=== PATIENT | female | born 1990 | race Two or more races ===

== ENCOUNTER 2021-02-26 08:00 | Outpatient (CLI) | payer OTHER ==
[2021-02-26 17:43] LABS: BILIRUBIN,URINE NEGATIVE (NEGATIVE); GLUCOSE, URINE (UA) NEGATIVE (NEGATIVE); KETONES,URINE (UA) NEGATIVE (NEGATIVE); LEUKOCYTE ESTERASE, URINE NEGATIVE (NEGATIVE); NITRITE,URINE NEGATIVE (NEGATIVE); OCCULT BLOOD,URINE NEGATIVE (NEGATIVE); PROTEIN,URINE NEGATIVE (NEGATIVE); UROBILINOGEN,URINE 0.2 (NORMAL) E.U./dL (NORMAL)
[2021-02-26 17:44] LABS: CLARITY,URINE CLEAR (CLEAR)
[2021-02-26 17:57] LABS: BACTERIA,URINE None Seen /HPF (None Seen); RBC,URINE None Seen /HPF (0-5); SQUAMOUS EPITHELIAL CELL,UR FEW Squamous (<= Few); WBC,URINE 0-3 /HPF (0-5)
== END 2021-02-26 23:59 ==
LOC: LAB.S 08:00
PROVIDERS: ATTEND Obstetrics & Gynecology
DX: O09.91 Supervision of high risk pregnancy, unspecified, first trimester (principal); Z36.89 Encounter for other specified antenatal screening
CPT/HCPCS: 81001; 87086

== ENCOUNTER 2021-03-14 14:47 | Outpatient (CLI) | payer OTHER ==
--- NOTE | 2021-03-14 16:43 | Ultrasound Report ---
PROCEDURE: OB First Trimester w/TV INDICATIONS: SUPERVISION HIGH RISH OUTSIDE/PRIOR DATING DATA: Last menstrual period (LMP): 01/07/2021. LMP-based estimated date of delivery (DA): 10/14/2021. First dating scan (date and location): 03/14/2021. Estimated date of delivery (DA) from first dating scan: 10/08/2021. The below data below was generated using the ultrasound DA of 10/08/2021 TECHNIQUE: Real-time scanning was performed of the fetus and maternal pelvic organs, with image documentation. Endovaginal scanning was also performed to better visualize the fetus and maternal ovaries. COMPARISON: None FINDINGS: Living first trimester anterior with crown-rump length and heartbeat. Embryo: [place]-rump length measures 3.4 cm, 10 weeks 2 days Heart rate: 192 There are 2 separate areas of subchorionic hemorrhage, measuring 2.8 x 2.7 x 1.1 cm and 1.8 x 0.8 x 1 .6 cm respectively. Measurement variability in dating: +/- 4 weeks by LMP, +/- 7 days by mean sac diameter (use before 6 weeks gestation if crown-rump length not able to be measured), +/- 5 days by crown-rump length (6-12 weeks gestation). Maternal organs: Left corpus luteum. Small posterior fibroid measuring 1.7 cm. IMPRESSION: 1. Living first trimester intrauterine with crown-rump length and heart beat measuring 10 w eeks 2 days. 2. Perigestational hemorrhage. Reviewed by: Stanley Figueroa MD on 03/14/2021 4:42 PM PST Approved by: Stanley Figueroa MD on 03/14/2021 4:42 PM PST Station ID: [id number]
== END 2021-03-14 14:48 | disposition home or self-care (01) ==
LOC: DI 14:47
PROVIDERS: ATTEND Obstetrics & Gynecology
DX: O09.91 Supervision of high risk pregnancy, unspecified, first trimester (principal); O20.8 Other hemorrhage in early pregnancy; Z3A.10 10 weeks gestation of pregnancy

== ENCOUNTER 2021-03-20 08:00 | Outpatient (CLI) | payer OTHER ==
[2021-03-20 22:01] LABS: CHLAMYDIA TRACHOMATIS DNA NEGATIVE (NEGATIVE); NEISSERIA GONORRHOEAE DNA NEGATIVE (NEGATIVE); TRICHOMONAS VAGINALIS DNA NEGATIVE (NEGATIVE)
== END 2021-03-20 23:59 | disposition home or self-care (01) ==
LOC: LAB.WC 08:00
PROVIDERS: ATTEND Obstetrics & Gynecology
DX: O09.91 Supervision of high risk pregnancy, unspecified, first trimester (principal)
CPT/HCPCS: 87491; 87591; 87661

== ENCOUNTER 2021-03-20 12:15 | Outpatient (CLI) | payer OTHER ==
[2021-03-20 13:01] LABS: % IRON SATURATION 20 % (20-50); IRON 86 ug/dL (28-170); TOTAL IRON BINDING CAPACITY 423 ug/dL (250-450); TRANSFERRIN 302 mg/dL (192-382)
== END 2021-03-20 12:16 | disposition home or self-care (01) ==
LOC: LAB 12:15
PROVIDERS: ATTEND Obstetrics & Gynecology
DX: O09.91 Supervision of high risk pregnancy, unspecified, first trimester (principal)
CPT/HCPCS: 36415; 82728; 83540; 84466; 87491; 87591; 87661

== ENCOUNTER 2021-04-09 14:08 | Outpatient (CLI) | payer OTHER ==
[2021-04-09 14:35] LABS: BASOPHILS # (AUTO) 0.1 10^3/uL (0.0-0.1); BASOPHILS % (AUTO) 0.6 %; EOSINOPHILS # (AUTO) 0.4 10^3/uL (0.0-0.7); EOSINOPHILS % (AUTO) 3.1 %; HCT - HEMATOCRIT 40.9 % (37.0-47.0); HGB - HEMOGLOBIN 14.7 g/dL (12.0-16.0); LYMPHOCYTES % (AUTO) 15.8 %; MEAN CORPUSCULAR HEMOGLOBIN 31.5 pg (27.0-31.0); MEAN CORPUSCULAR HGB CONC 35.9 g/dL (32.0-36.0); MEAN CORPUSCULAR VOLUME 87.6 fL (81.0-99.0); MEAN PLATELET VOLUME 9.1 fL (7.9-10.8); MONOCYTES % (AUTO) 7.7 %; NEUTROPHILS # (AUTO) 8.9 10^3/uL (1.5-6.6); NEUTROPHILS % (AUTO) 70.6 %; PLT - PLATELET COUNT 372 10^3/uL (130-450); RED BLOOD COUNT 4.67 10^6/uL (4.20-5.40); RED CELL DISTRIBUTION WIDTH 13.2 % (12.0-15.0); WHITE BLOOD COUNT 12.6 x10^3/uL (4.8-10.8)
[2021-04-09 15:04] LABS: THYROID STIMULATING HORMONE 1.09 uIU/mL (0.34-5.60)
[2021-04-10 09:12] LABS: HEPATITIS B SURFACE ANTIGEN NON-REACTIVE (NON-REACTIVE)
[2021-04-10 11:37] LABS: HEPATITIS C ANTIBODY NON-REACTIVE (NON-REACTIVE)
[2021-04-10 14:51] LABS: HIV AG/AB 4TH GEN NON-REACTIVE (NON-REACTIVE)
== END 2021-04-09 14:09 | disposition home or self-care (01) ==
LOC: LAB 14:08
PROVIDERS: ATTEND Obstetrics & Gynecology
DX: Z36.89 Encounter for other specified antenatal screening (principal); R53.83 Other fatigue
CPT/HCPCS: 36415; 84443; 85025; 86592; 86762; 86787; 86803; 86850; 86900; 86901; 87340; 87389

== ENCOUNTER 2021-06-05 10:02 | Outpatient (CLI) | payer OTHER ==
--- NOTE | 2021-06-05 13:53 | Ultrasound Report ---
PROCEDURE: OB Detailed Eval INDICATIONS: SUPERVISION OF OUTSIDE/PRIOR DATING DATA: Last menstrual period (LMP): 01/07/2021. LMP-based estimated date of delivery (DA): 10/14/2021. First dating scan (date and location): 03/14/2021 at [facility]. Estimated date of delivery (DA) from first dating scan: 10/08/2021. The below data below was generated using the ultrasound DA of 10/08/2021. TECHNIQUE: Real-time scanning was performed of the fetus, with image documentation and biometric measurements. COMPARISON: OB ultrasound, 03/14/2021. FINDINGS: General: A single living intrauterine gestation is present. Presentation: Variable Placenta: Placental position is posterior, without previa. Amniotic fluid index: 14.2 cm; largest pocket 4.6 cm. heart rate: 155 beats per minute. Maternal cervical canal: 6.2 cm long; normal length is 2.5 cm or more. biometrics: Biparietal diameter: 20 weeks 4 days. Head circumference: 21 weeks 3 days Abdominal circumference: 22 weeks 2 days Femur length: 20 weeks 6 days Estimated gestational age from initial scan: 22 weeks 1 day. Composite gestational age from present scan: 21 weeks 4 days Estimated weight and percentile: 339 g; 21% for gestational age. Measurement variability in biometric dating: +/- 10 days from 12-20 weeks gestation, +/- 2 weeks from 20-30 weeks gestation, +/- 3 weeks at 30 weeks gestation or later. Anatomic survey: Neuro: Ventricles are normal at less than 10 mm. Cisterna magna is normal at 3-11 mm. Cerebellum i s normal in size and morphology. Nuchal skin fold: Normal at less than 6 mm between 14 and 20 weeks gestational age. Face: Nose and lips, facial profile are normal. Spine: No evidence for spina bifida. Heart: 4-chambered heart is present, with normal ventricular outflow tracts. Diaphragm: Diaphragm is intact. Stomach: Left-sided stomach is present. Kidneys: No hydronephrosis. Normal is less than 5 mm in 2nd trimester, less than 7 mm in 3rd trimester. Cord: 3 vessel cord has orthotopic insertion. Bladder: Normal in size. Extremities: All 4 extremities are visualized. IMPRESSION: 1. A single living IUP redemonstrated. Interval growth within normal limits. 2. weight is estimated at 21th percentile for gestational age. 3. Normal anatomic survey. Reviewed by: Ron Still MD on 06/05/2021 1:52 PM PDT Approved by: Ron Still MD on 06/05/2021 1:52 PM PDT Station ID: [id number]
== END 2021-06-05 10:03 | disposition home or self-care (01) ==
LOC: DI 10:02
PROVIDERS: ATTEND Obstetrics & Gynecology
DX: O09.92 Supervision of high risk pregnancy, unspecified, second trimester (principal); Z3A.21 21 weeks gestation of pregnancy; Z36.89 Encounter for other specified antenatal screening

== ENCOUNTER 2021-06-16 12:57 | Outpatient (CLI) | payer OTHER ==
[2021-06-17 13:01] LABS: AGE RISK DOWN SYNDROME 1 IN 497; CALC'D GESTATIONAL AGE 22.9 weeks; CIGARETTE SMOKER? NOT GIVEN; DONOR AGE: EGG RETRIEVAL NOT GIVEN; DONOR EGG NO; ESTRIOL MOM 1.18; HCG MOM 2.71; HX OF NEURAL TUBE DEFECTS NO; INHIBIN A MOM 1.08; INSULIN DEPEND DIABETIC NO; MATERNAL WEIGHT 122 lbs; MSS DOWN SYNDROME RISK 1 IN 3830; MSS3 TRISOMY 18 RISK <1 IN 5000; NUMBER OF FETUSES 1; PREV PREGNANCY DOWN SYND NO; RISK FOR ONTD 1 IN 4205
== END 2021-06-16 12:58 | disposition home or self-care (01) ==
LOC: LAB.N 12:57
PROVIDERS: ATTEND Obstetrics & Gynecology
DX: Z36.8A Encounter for antenatal screening for other genetic defects (principal); Z86.32 Personal history of gestational diabetes
CPT/HCPCS: 36415; 81511; 82950

== ENCOUNTER 2021-07-14 08:04 | Outpatient (CLI) | payer OTHER ==
[2021-07-14 08:33] LABS: GTT GLUCOSE,FASTING 103 mg/dL (70-100)
== END 2021-07-14 08:05 | disposition home or self-care (01) ==
LOC: LAB 08:04
PROVIDERS: ATTEND Obstetrics & Gynecology
DX: Z86.32 Personal history of gestational diabetes (principal)
CPT/HCPCS: 36415; 82951; 82952

== ENCOUNTER 2021-08-15 12:42 | Outpatient (CLI) | payer OTHER ==
--- NOTE | 2021-08-15 15:52 | Ultrasound Report ---
PROCEDURE: OB F/U or Repeat INDICATIONS: GESTTIONAL DIABETES OUTSIDE/PRIOR DATING DATA: Last menstrual period (LMP): 01/07/2021. LMP-based estimated date of delivery (DA): 10/14/2021. First dating scan (date and location): 03/14/2021. Estimated date of delivery (DA) from first dating scan: 10/08/2021. The below data below was generated using the sonographically derived DA of 10/08/2021 TECHNIQUE: Real-time scanning was performed of the fetus, with image documentation and biometric measurements. Endovaginal scanning: Not performed COMPARISON: 06/05/2021, 03/14/2021 FINDINGS: General: A single living intrauterine gestation is present. Presentation: Cephalic Placenta: Placental position is posterior, without previa. Amniotic fluid index: 18.4 cm, normal for gestational age. Largest pocket is 5.3 cm. heart rate: 143 beats per minute. Maternal cervical canal: Closed and 6.8 cm long; normal length is 2.5 cm or more. biometrics: Biparietal diameter: 7.9 cm, 31 weeks, 6 days Head circumference: 29.9 cm, 33 weeks, 1 day Abdominal circumference: 28.1 cm, 32 weeks, 1 day Femur length: 5.8 cm, 30 weeks, 2 days Estimated gestational age from initial scan: 32 weeks, 2 days. Composite gestational age from present scan: 31 weeks, 6 days Estimated weight and percentile: 1809 g, 21st percentile Measurement variability in biometric dating: +/- 10 days from 12-20 weeks gestation, +/- 2 weeks from 20-30 weeks gestation, +/- 3 weeks at 30 weeks gestation or more. Other: Not applicable. IMPRESSION: 1. Single living intrauterine with composite gestational age by today's measurements 3 days behind the initially assigned gestational age. 2. Estimated weight 1809 g, at the 21st percentile compared to the initial ultrasound. 3. Amniotic fluid index is 18.4 cm. Reviewed by: Lita Campo MD on 08/15/2021 3:51 PM PDT Approved by: Lita Campo MD on 08/15/2021 3:51 PM PDT Station ID: [id number]
== END 2021-08-15 12:43 | disposition home or self-care (01) ==
LOC: DI 12:42
PROVIDERS: ATTEND Obstetrics & Gynecology
DX: O24.410 Gestational diabetes mellitus in pregnancy, diet controlled (principal); Z3A.31 31 weeks gestation of pregnancy

== ENCOUNTER 2021-09-01 08:06 | Outpatient (CLI) | payer OTHER ==
--- NOTE | 2021-09-01 17:37 | Ultrasound Report ---
PROCEDURE: OB Biophysical Profile INDICATIONS: GESTATIONAL DIABETES MELLITUS OUTSIDE/PRIOR DATING DATA: Last menstrual period (LMP): 01/07/2021. LMP-based estimated date of delivery (DA): 10/14/2021. First dating scan (date and location): 03/14/2021. Estimated date of delivery (DA) from first dating scan: 10/08/2021. TECHNIQUE: Real-time scanning was performed of the fetus, with image documentation and biometric steven surements. Biophysical profile was also obtained. Endovaginal scanning: Not performed COMPARISON: 08/15/2021 FINDINGS: General: A single living intrauterine gestation is present. Presentation: Vertex Placenta: Placental position is posterior, without previa. Amniotic fluid index: 13.1 cm. heart rate: 123 beats per minute. Maternal cervical canal: 5.3 cm long; normal length is 2.5 cm or more. Estimated gestational age from initial scan: 34 weeks and 5 days. Biophysical profile: Tone: 2 points. Movement: 2 points. Respiration: 0 points. Largest pocket of fluid: 2 points. Largest vertical pocket measured 5.2 cm. Umbilical artery Doppler: Normal S/D ratios and cord Doppler waveforms. IMPRESSION: Single living intrauterine gestation with estimated gestational age of approximately 34 weeks and 5 d ays. Biophysical profile score of 6 out of 8 points. Four-quadrant ARIEL measured 13.1 cm with largest verti da pocket of 5.2 cm. Normal S/D ratios and cord Doppler waveforms. Reviewed by: Franco Ziegler MD on 09/01/2021 5:36 PM PDT Approved by: Franco Ziegler MD on 09/01/2021 5:36 PM PDT Station ID: [id number]
== END 2021-09-01 08:07 | disposition home or self-care (01) ==
LOC: DI 08:06
PROVIDERS: ATTEND Obstetrics & Gynecology
DX: O24.410 Gestational diabetes mellitus in pregnancy, diet controlled (principal); Z3A.34 34 weeks gestation of pregnancy

== ENCOUNTER 2021-09-01 08:59 | Observation (INO) | payer OTHER ==
[2021-09-01] MEDS ORDERED: LACTATED RINGERS 1,000 ML IV ONE (09:42)
[2021-09-01 12:01] LABS: BILIRUBIN,URINE NEGATIVE (NEGATIVE); GLUCOSE, URINE (UA) NEGATIVE (NEGATIVE); KETONES,URINE (UA) NEGATIVE (NEGATIVE); LEUKOCYTE ESTERASE, URINE NEGATIVE (NEGATIVE); NITRITE,URINE NEGATIVE (NEGATIVE); OCCULT BLOOD,URINE NEGATIVE (NEGATIVE); PROTEIN,URINE NEGATIVE (NEGATIVE); UROBILINOGEN,URINE 0.2 (NORMAL) E.U./dL (NORMAL)
[2021-09-01 12:02] LABS: CLARITY,URINE CLEAR (CLEAR)
[2021-09-01 12:07] LABS: BACTERIA,URINE Few /HPF (None Seen); RBC,URINE 0-5 /HPF (0-5); SQUAMOUS EPITHELIAL CELL,UR FEW Squamous (<= Few); WBC,URINE 0-3 /HPF (0-5)
[2021-09-01] MEDS ORDERED: BETAMETHASONE 30 MG/5 ML VIAL IM ONE (13:02)
--- NOTE | 2021-09-01 13:02 | HISTORY & PHYSICAL EXAMINATION ---
Admit History - Visit Reason Visit Reason: Contractions - : 2 Parity: 2 Premature: 2 Care: positive: [facility] Risk/History: positive: labor <37 weeks Complications This : positive: Gestational diabetes Meds/Allgy - Allergies Allergies/Adverse Reactions: Allergies Allergy/AdvReac Type Severity Reaction Status Date / Time No Known Drug Allergies Allergy Verified 09/01/21 11:57 Review of Systems - Constitutional Constitutional: denies: Fatigue, Fever, Chills - Cardiovascular Cariovascular: denies: Chest pain - Respiratory Respiratory: denies: Cough, SOB at rest, SOB with exertion - Gastrointestinal Gastrointestinal: denies: Abdominal pain - Neurological Neurological: denies: Headache - All Other Systems All Other Systems: reports: Reviewed and negative Physical - Abdominal Exam Vital Signs: Temp Pulse Resp BP Pulse Ox 97.5 F L 100 18 113/74 09/01/21 09:06 09/01/21 09:06 09/01/21 09:06 09/01/21 09:06 Contraction Intensity: positive: Mild Uterine Resting Tone: positive: Soft - Monitoring Strip Review: positive: Category I - Vaginal Exam Membranes: positive: Membranes intact Station: positive: 0, 3 Cervical Position: positive: Posterior - Speculum Exam Speculum Exam Performed: positive: No Plan for Labor - Plan For Labor I expect patient to be DC'd or transferred within 96 hours.: Yes Plan for Labor: Patient is a at 34+6 weeks with history of section presenting with pelvic pressure. has been complicated by gestational diabetes. 1. contractions -U/A negative -FFN negative -Patient has history of delivery secondary to mono-mono twin gestation -cervix is unchanged on both of my exams, will keep for monitoring overnight 2. prematurity - steroids -discussed with patient, if cervical change or becomes more uncomfortable, will need to transfer patient 3. gestational diabetes -continue home regimen: metformin 62564 BID 4. wellbeing reassuring Plan of care discussed with patient and all questions answered.
[2021-09-01] MEDS ORDERED: metFORMIN 500 MG TABLET PO SCH (17:00)
[2021-09-01 18:03] LABS: CHLAMYDIA TRACHOMATIS DNA NEGATIVE (NEGATIVE); NEISSERIA GONORRHOEAE DNA NEGATIVE (NEGATIVE); TRICHOMONAS VAGINALIS DNA NEGATIVE (NEGATIVE)
--- NOTE | 2021-09-01 18:53 | PROVIDER PROGRESS NOTE ---
Labor Progress Note - Uterine Monitoring Uterine Monitoring Mode: positive: External toco Uterine Resting Tone: positive: Soft - Monitoring Monitor Mode: positive: External ultrasound Heart Rate Variability: positive: Moderate (6-25 bmp) Accelerations: positive: Present, 15x15 Decelerations: positive: None - Vaginal Exam Dilation (in cm): 0 Effacement (%): 0 - Labor Progress Note Labor Progress Note/Additional Text: Patient with continued contractions, status post first dose of betamethasone. wellbeing is reassuring. Cervical exam is unchanged. If unchanged tomorrow will discharge to home.
--- NOTE | 2021-09-02 07:57 | PROVIDER PROGRESS NOTE ---
Labor Progress Note - Uterine Monitoring Uterine Monitoring Mode: positive: External toco - Monitoring Monitor Mode: positive: External ultrasound Heart Rate Variability: positive: Minimal (0-5 bpm) Accelerations: positive: Present, 15x15 Decelerations: positive: None - Vaginal Exam Dilation (in cm): 0 Effacement (%): 0 Station: -3 (Patient's contractions spaced out and she is not cristal this morning. Positive movement. Denies vaginal bleeding and leakage of fluid.)
--- NOTE | 2021-09-02 07:58 | Discharge Plan ---
Discharge Plan Problem Reviewed?: Yes Disposition: Home, Self Care Condition: Stable Diet: Diabetic Activity Restrictions: No Restrictions Shower Restrictions: No No Smoking: If you smoke, Please STOP! Call for help. Follow-up with: KILO NAGY ARNP [Primary Care Provider] -
--- NOTE | 2021-09-02 08:00 | DISCHARGE SUMMARY ---
Discharge Summary Admit Date: 09/01/21 Discharge Date: 09/02/21 Discharging Provider: Shanna Sánchez MD Primary Care Provider: Kris Moore MD Code Status: Attempt Resuscitation Condition at Discharge: Stable Discharge Disposition: 01 Home, Self Care - DIAGNOSES Admission Diagnoses: contractions - HPI History of Present Illness: Patient is a who presented at 33+6 with contractions occurring every 4-5 minutes. - HOSPITAL COURSE Hospital Course: FFN was negative. Patient had no cervical change. She received her first dose of betamethasone. Overnight contractions stopped. This morning patient was doing well and cervix was still closed. She was discharged to home and advised to return for regular contractions, vaginal bleeding, leakage of fluid, decreased movement, or any other concerns. - ALLERGIES Allergies/Adverse Reactions: Allergies Allergy/AdvReac Type Severity Reaction Status Date / Time cephalexin [From Keflex] Allergy Hives Verified 09/01/21 14:52 - PHYSICAL EXAM AT DISCHARGE General Appearance: positive: No acute distress Respiratory: positive: Breath sounds nml Cardiovascular: positive: Regular rate & rhythm Abdomen: positive: Non-tender Skin: positive: Color nml Extremities: positive: No pedal edema - FOLLOW UP Follow Up: Patient will return today for second dose of betamethasone
[2021-09-02 08:36] VITALS: BP 107/74
== END 2021-09-02 09:18 | disposition home or self-care (01) ==
LOC: WFO 08:59 → FBP 09:02 → WFO 14:00 → FBP 14:35
PROVIDERS: ADMIT Obstetrics & Gynecology Obstetrics; ATTEND Obstetrics & Gynecology Obstetrics
DX: O60.03 Preterm labor without delivery, third trimester (principal); Z3A.33 33 weeks gestation of pregnancy; O24.419 Gestational diabetes mellitus in pregnancy, unspecified control; Z79.84 Long term (current) use of oral hypoglycemic drugs
CPT/HCPCS: 59025; 76819; 81001; 82731; 87491; 87591; 87661; 87797; 96360; 96372; 99215; A9270; G0378; J7120; 87086

== ENCOUNTER 2021-09-09 08:43 | Outpatient (CLI) | payer OTHER ==
--- NOTE | 2021-09-09 09:24 | PROCEDURE REPORT ---
- HPI Diagnosis/Indication for NST: Gestational Diabetes Current EDU 10/14/21 Gestation 35 Weeks and 0 Days 2 Para 1 Vital Signs Temperature 207.3 F H 09/09/21 09:01 Heart Rate 105 H 09/09/21 09:01 Respiratory Rate 14 09/09/21 09:01 Blood Pressure 114/77 09/09/21 09:01 Temperature 207.3 F H 09/09/21 09:01 Heart Rate 105 H 09/09/21 09:01 Respiratory Rate 14 09/09/21 09:01 Blood Pressure 114/77 09/09/21 09:01 O2 Saturation - NST Procedure NST Procedure Start Date 09/09/21 Start Time 08:53 Stop Time 09:40 Vibroacoustic Stimulation Used No Patient States Movement Yes
[2021-09-09] MEDS ORDERED: LACTATED RINGERS 500 ML IV ONE (11:39)
[2021-09-09 12:15] VITALS: BP 115/69
--- NOTE | 2021-09-09 14:01 | PROVIDER PROGRESS NOTE ---
- HPI Chief Complaint: Labor Check Current : Current EDU 10/14/21 Gestation 35 Weeks and 0 Days 2 Para 1 Vital Signs Temperature 207.3 F H 09/09/21 09:01 Heart Rate 105 H 09/09/21 09:01 Respiratory Rate 14 09/09/21 09:01 Blood Pressure 114/77 09/09/21 09:01 Temperature 209.5 F H 09/09/21 12:58 Heart Rate 99 09/09/21 12:58 Respiratory Rate 18 09/09/21 12:58 Blood Pressure 115/69 09/09/21 12:58 O2 Saturation 100 09/09/21 12:14 - Procedures OB Procedure Performed: NST Diagnosis/Indication for NST: Gestational Diabetes NST Procedure: NST Procedure Start Date 09/09/21 Start Time 08:53 Stop Time 09:24 Vibroacoustic Stimulation Used No Patient States Movement Yes Service Date of procedure: 09/09/20 (09/09/2020) - Plan Plan: Patient is a 30-year-old -0-0-2 at 35 weeks 0 days gestation presenting to triage for scheduled NST. She has good movement, no leaking, no vaginal bleeding. She denies headache, right upper quadrant pain, changes in vision. And sits at home and these resolved. She was monitored last week for contraction was kept overnight without cervical change. Physical Constitutional: alert, no acute distress, well hydrated, well developed, well nourished, appropriate dress. Cardiovascular: RRR. Respiratory: no respiratory distress. Abdomen: nondistended, nontender, no guarding. Psych: affect and mood appropriate, normal interaction, good eye contact. SVE: 0/0/-3 FHT: 135 beats minute baseline, moderate bili, accelerations present, no decelerations. [place]: Every 6 to 10 minutes BPP: 09/29 Assessment and plan 30-year-old -0-0-2 at 35 weeks 0 days gestation with gestational diabetes 1. Gestational diabetes -NST was reactive today. BPP showed 8 out of 8. -Mild. NST was reactive, we offered her a cervical exam as she was cristal on the monitor. While waiting for this, she had an occasional late-appearing deceleration, she was kept for extended monitoring and these did not persist. Although while, she had good variability with accelerations. -Monitored in triage for approximately 4 hours. 2. Contractions -No cervical change despite 3 checks this visit. 3. 35 weeks gestation -, Has visit next later this week 4. History of labor -Due to mono Di twins.
== END 2021-09-09 13:30 | disposition home or self-care (01) ==
LOC: WFO 08:43 → FBP 08:45 → WFO 13:30
PROVIDERS: ATTEND Obstetrics & Gynecology
DX: O24.410 Gestational diabetes mellitus in pregnancy, diet controlled (principal); O09.213 Supervision of pregnancy with history of pre-term labor, third trimester; Z3A.35 35 weeks gestation of pregnancy
CPT/HCPCS: 59025; 76819; 96360; 99215; J7120

== ENCOUNTER 2021-09-12 08:00 | Outpatient (CLI) | payer OTHER | END 2021-09-12 23:59 | disposition home or self-care (01) | LOC: LAB 08:00 | PROVIDERS: ATTEND Nurse Practitioner | DX: Z36.85 Encounter for antenatal screening for Streptococcus B (principal) | CPT/HCPCS: 87797 ==

== ENCOUNTER 2021-09-12 09:11 | Outpatient (CLI) | payer OTHER ==
[2021-09-12 09:35] VITALS: BP 106/75
--- NOTE | 2021-09-12 09:55 | PROCEDURE REPORT ---
- HPI Diagnosis/Indication for NST: Gestational Diabetes Current EDU 10/14/21 Gestation 35 Weeks and 3 Days 2 Para 1 Vital Signs Temperature 98.4 F 09/12/21 09:32 Temperature 98.4 F 09/12/21 09:32 Heart Rate 96 09/12/21 09:34 Respiratory Rate 16 09/12/21 09:34 Blood Pressure 106/75 09/12/21 09:34 O2 Saturation 99 09/12/21 09:34 - NST Procedure NST Procedure Start Date 09/12/21 Start Time 09:20 Stop Time 09:24 Patient States Movement Yes - Results and Plan Plan: Patient is a 30-year-old -0-0-2 at 35 weeks 3 days gestation here for scheduled NST. NST Performed 09/12/2021 NST Read 09/12/2021 FHT: 140 bpm baseline, moderate variability, accelerations present, no decelerations. Reactive NST [place]: 4 to 8 minutes Diagnosis 35 weeks gestation Gestational diabetes contractions without labor. Continues to contract, but is not feeling them. She has had numerous visits with this. Defer pelvic exam at this time. Continue with twice weekly NST.
== END 2021-09-12 09:55 | disposition home or self-care (01) ==
LOC: WFO 09:11 → FBP 09:14 → WFO 09:55
PROVIDERS: ATTEND Obstetrics & Gynecology
DX: O24.419 Gestational diabetes mellitus in pregnancy, unspecified control (principal); O47.03 False labor before 37 completed weeks of gestation, third trimester; Z3A.35 35 weeks gestation of pregnancy
CPT/HCPCS: 59025

== ENCOUNTER 2021-09-16 08:08 | Outpatient (CLI) | payer OTHER ==
--- NOTE | 2021-09-16 12:27 | Ultrasound Report ---
PROCEDURE: OB Biophysical Profile INDICATIONS: GESTATIONAL DIABETES MELLITUS OUTSIDE/PRIOR DATING DATA: Last menstrual period (LMP): 01/07/2021. LMP-based estimated date of delivery (DA): 10/15/2019. First dating scan (date and location): 03/14/2021. Estimated date of delivery (DA) from first dating scan: 10/08/2021. TECHNIQUE: Real-time scanning was performed of the fetus, with image documentation and biometric steven surements. Biophysical profile was also obtained. COMPARISON: 09/09/2021 FINDINGS: General: A single living intrauterine gestation is present. Presentation: Cephalic Placenta: Placental position is posterior, without previa. Amniotic fluid index: 14.4 cm, 141 for gestational age. heart rate: 143 beats per minute. Maternal cervical canal: 3.1 cm long; normal length is 2.5 cm or more. Possible contraction. Estimated gestational age by initial ultrasound is currently 36 weeks and 6 days. Biophysical profile: Tone: 2 points. Movement: 2 points. Respiration: 2 points. Largest pocket of fluid: 2 points. Umbilical artery Doppler: Sd ratio ranges from 2.2-2.9. Diastolic flow is preserved. Maternal adnexal structures within normal limits. IMPRESSION: Biophysical profile is 8 out of 8. SD ratios above. Intrauterine by initial ultrasound is currently 36 weeks and 6 days gestational age. Reviewed by: Dony Matthews MD on 09/16/2021 12:26 PM PDT Approved by: Dony Matthews MD on 09/16/2021 12:26 PM PDT Station ID: [id number]
== END 2021-09-16 08:09 | disposition home or self-care (01) ==
LOC: DI 08:08
PROVIDERS: ATTEND Obstetrics & Gynecology
DX: O24.410 Gestational diabetes mellitus in pregnancy, diet controlled (principal); Z3A.36 36 weeks gestation of pregnancy

== ENCOUNTER 2021-09-19 09:04 | Outpatient (CLI) | payer OTHER ==
[2021-09-19 09:45] VITALS: BP 108/70
--- NOTE | 2021-09-19 10:07 | PROCEDURE REPORT ---
- HPI Diagnosis/Indication for NST: Gestational Diabetes Vital Signs Temperature 97.6 F L 09/19/21 09:35 Heart Rate 94 09/19/21 09:35 Respiratory Rate 17 09/19/21 09:35 Blood Pressure 108/70 09/19/21 09:35 Temperature 97.6 F L 09/19/21 09:35 Heart Rate 94 09/19/21 09:35 Respiratory Rate 17 09/19/21 09:35 Blood Pressure 108/70 09/19/21 09:35 O2 Saturation - NST Procedure NST Procedure Start Time 09:05 Stop Time 09:40 - Results and Plan Plan: Patient is a 30-year-old -0-0-2 at 36 weeks 3 days gestation here for scheduled NST. NST Performed 09/19/2021 NST Read 09/19/2021 FHT: 139 bpm baseline, moderate variability, accelerations present, no decelerations. Reactive NST [place]: Approximately 10 minutes Diagnosis 36 weeks gestation Dichorionic, diamniotic twins contractions not leading to labor Continue with twice weekly NST.
== END 2021-09-19 10:07 | disposition home or self-care (01) ==
LOC: WFO 09:04 → FBP 09:13 → WFO 10:07
PROVIDERS: ATTEND Obstetrics & Gynecology
DX: O24.419 Gestational diabetes mellitus in pregnancy, unspecified control (principal); O09.213 Supervision of pregnancy with history of pre-term labor, third trimester; Z3A.36 36 weeks gestation of pregnancy
CPT/HCPCS: 59025

== ENCOUNTER 2021-09-23 08:09 | Outpatient (CLI) | payer OTHER ==
--- NOTE | 2021-09-23 09:59 | Ultrasound Report ---
PROCEDURE: OB Biophysical Profile INDICATIONS: GESTATIONAL DIABETES MELLITUS OUTSIDE/PRIOR DATING DATA: Last menstrual period (LMP): 01/07/2021. LMP-based estimated date of delivery (DA): 10/14/2021. First dating scan (date and location): 03/14/2021, [facility] [place] Estimated date of delivery (DA) from first dating scan: 10/08/2021. TECHNIQUE: Real-time scanning was performed of the fetus, with image documentation and biometric steven surements. Biophysical profile was also obtained. Endovaginal scannin COMPARISON: 09/09/2021, 09/16/2021 FINDINGS: General: A single living intrauterine gestation is present. Presentation: Cephalic Placenta: Placental position is no, without previa. Amniotic fluid index: 15.7 cm, normal for gestational age. heart rate: 140 beats per minute. Maternal cervical canal: 3.9 cm long; normal length is 2.5 cm or more. Biophysical profile: Tone: 2 points. Movement: 2 points. Respiration: 2 points. Largest pocket of fluid: 2 points. Umbilical artery Doppler: Ranging from 2.2-3.0 systolic diastolic ratio IMPRESSION: Intrauterine gestation at 37 weeks and 6 days. 8 out of 8 biophysical profile score. Normal umbilical artery systolic diastolic ratio, ranging from 2.2-3.0. Biometrics not performed on today's study Normal amniotic fluid. Cephalic presentation. Reviewed by: Dony Matthews MD on 09/23/2021 9:57 AM PDT Approved by: Dony Matthews MD on 09/23/2021 9:57 AM PDT Station ID: [id number]
== END 2021-09-23 08:10 | disposition home or self-care (01) ==
LOC: DI 08:09
PROVIDERS: ATTEND Obstetrics & Gynecology
DX: O24.410 Gestational diabetes mellitus in pregnancy, diet controlled (principal); Z3A.37 37 weeks gestation of pregnancy